=== PATIENT | female | born 1990 | race African-American/Black ===

== ENCOUNTER 2017-07-14 21:22 | Emergency (ER) | payer SELFPAY ==
[~2017-07-14] VITALS: Ht 167.6 cm; Wt 72.6 kg
[2017-07-14 21:23] VITALS: BP 116/69
--- NOTE | 2017-07-14 21:28 | NUR ---
TO LOBBY AMB, A/W FOR BED ,IN STABLE CONDITION, EDWIGE NOTED
--- NOTE | 2017-07-15 02:23 | NUR ---
PT TAKEN TO BED 3
--- NOTE | 2017-07-15 02:37 | NUR ---
PT. STATES " I AM HERE BECAUSE I AM HUNGRY, I DON' T HAVE ANY ABDOMINAL PAIN" ER MD MADE AWARE OF PT. STATUS.
--- NOTE | 2017-07-15 02:45 | NUR ---
PATIENT ELOPED FROM FACILITY. DISCHARGE INSTRUCTIONS NOT GIVEN TO PATIENT. DR. Floyd NOTIFIED.
== END 2017-07-15 02:45 | disposition left against medical advice (07) ==
LOC: MED 21:22
DX: R10.9 Unspecified abdominal pain (principal)
CPT/HCPCS: 99281

== ENCOUNTER 2017-07-15 07:07 | Emergency (ER) | payer SELFPAY ==
[~2017-07-15] VITALS: Ht 154.9 cm; Wt 79.0 kg
--- NOTE | 2017-07-15 07:38 | NUR ---
pt taken to overflow 1
--- NOTE | 2017-07-15 07:46 | NUR ---
PT REFUSE TO HAVE VITAL SIGNS TAKEN, IWONA, DR LOZANO NOTIFIED Addendum: 07/15/17 at 0753 by SHEILA PT REFUSE TO ANSWER QUESTIONS, ONLY WANT TO TALK TO , PER DR LOZANO NEEDS VS, PT REFUSE AND IWONA
--- NOTE | 2017-07-15 08:07 | NUR ---
PT BACK AT THE LOBBY REFUSE BREAKFAST PROVIDED, OK TO HAVE V/S IN 10 MIN PER PT, DENA/ NOTIFIED
[2017-07-15 08:27] VITALS: BP 110/62
--- NOTE | 2017-07-15 08:32 | NUR ---
PT AMBULATES TO OF4, URINE SPECIMEN CUP GIVEN, CH RN NOTIFIED
--- NOTE | 2017-07-15 08:33 | NUR ---
PT TAKEN TO OVERFLOW 4.
[2017-07-15 08:35] VITALS: BP 110/62
--- NOTE | 2017-07-15 08:35 | NUR ---
PATIENT PRESENTS TO ED WITH C/O RT FOOT PAIN, SORE THROAT 10/10 SINCE YESTERDAY.DENIES N/V/D; SKIN IS PINK/WARM/DRY; AAOX4 WITH EVEN AND STEADY GAIT; LUNGS CLEAR BL; HR EVEN AND REGULAR; PT DENIES ANY FEVER, CP, SOB, OR COUGH AT THIS TIME; PATIENT STATES PAIN OF 10/10 AT THIS TIME;PATIENT POSITIONED FOR COMFORT; HOB ELEVATED; BEDRAILS UP X2; BED DOWN. ER MD MADE AWARE OF PT STATUS.
--- NOTE | 2017-07-15 08:48 | NUR ---
Patient being evaluated by physician at bedside.
--- NOTE | 2017-07-15 08:57 | NUR ---
PT LEFT FACILITY WITHOUT DISCHARGE INSTRUCTIONS. PT FOUND FLIPPING CHAIRS IN THE LOBBY THEN SEEN WALKING TO THE FRONT MAIN LOBBY. SECURITY CALLED AND INFORMED. NO DISCHARGE INSTRUCTIONS GIVEN. DR. LOZANO MADE AWARE.
== END 2017-07-15 08:57 | disposition home or self-care (01) ==
LOC: MED 07:07
DX: M79.604 Pain in right leg (principal)
CPT/HCPCS: 99281